=== PATIENT | female | born 1975 | race Two or more races ===

== ENCOUNTER 2018-11-18 09:08 | Outpatient (CLI) | payer OTHER ==
[~2018-11-18 09:08] MED LIST: ENDOCET 5/325 T1 TAB PO; IRON SUPPLEMENT1 TAB PO
== END 2018-11-18 09:27 | disposition home or self-care (01) ==
LOC: MAMO-SONO 09:08
DX: N63.10 Unspecified lump in the right breast, unspecified quadrant (principal); N63.20 Unspecified lump in the left breast, unspecified quadrant; Z12.31 Encounter for screening mammogram for malignant neoplasm of breast

== ENCOUNTER 2020-10-11 14:47 | Outpatient (CLI) | payer OTHER | END 2020-10-11 14:57 | disposition home or self-care (01) | LOC: MAMO-SONO 14:47 | PROVIDERS: ATTEND Specialist | DX: Z12.31 Encounter for screening mammogram for malignant neoplasm of breast (principal); N64.59 Other signs and symptoms in breast ==

== ENCOUNTER 2020-11-04 13:28 | Outpatient (CLI) | payer OTHER | END 2020-11-04 14:34 | disposition home or self-care (01) | LOC: MAMO-SONO 13:28 | PROVIDERS: ATTEND Specialist | DX: N92.0 Excessive and frequent menstruation with regular cycle (principal) ==

== ENCOUNTER 2022-01-16 08:50 | Outpatient (CLI) | payer OTHER | END 2022-01-17 13:06 | disposition home or self-care (01) | LOC: MAMO-SONO 08:50 | PROVIDERS: ATTEND Specialist | DX: Z12.31 Encounter for screening mammogram for malignant neoplasm of breast (principal); N63.0 Unspecified lump in unspecified breast; N83.209 Unspecified ovarian cyst, unspecified side ==

== ENCOUNTER 2023-01-18 08:16 | Outpatient (CLI) | payer OTHER | END 2023-01-18 08:24 | disposition home or self-care (01) | LOC: MAMO-SONO 08:16 | PROVIDERS: ATTEND Specialist | DX: Z12.31 Encounter for screening mammogram for malignant neoplasm of breast (principal); N63.0 Unspecified lump in unspecified breast ==

== ENCOUNTER 2024-07-02 08:06 | Outpatient (CLI) | payer OTHER | END 2024-07-02 08:17 | disposition home or self-care (01) | LOC: MAMO-SONO 08:06 | PROVIDERS: ATTEND Specialist | DX: N63.0 Unspecified lump in unspecified breast (principal); Z12.31 Encounter for screening mammogram for malignant neoplasm of breast ==

== ENCOUNTER → 2024-08-19 | Emergency (ER) | payer OTHER | END | disposition left against medical advice (07) | LOC: ER 18:00 | DX: Z53.21 Procedure and treatment not carried out due to patient leaving prior to being seen by health care provider (principal) ==

== ENCOUNTER 2025-08-04 08:13 | Outpatient (CLI) | payer OTHER | END 2025-08-04 08:18 | disposition home or self-care (01) | LOC: MAMO-SONO 08:13 | PROVIDERS: ATTEND Specialist | DX: N63.0 Unspecified lump in unspecified breast (principal); Z12.31 Encounter for screening mammogram for malignant neoplasm of breast ==